=== PATIENT | female | born 1965 | race Caucasian/White ===

== ENCOUNTER → 2020-06-09 17:20 | Outpatient (CLI) | payer OTHER, SELFPAY ==
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
== END ==
PROVIDERS: PCP Family Medicine; Visit Provider Anesthesiology Pain Medicine
DX: M54.9 Dorsalgia, unspecified (principal)
CPT/HCPCS: 72072

== ENCOUNTER → 2022-08-02 | Outpatient (CLI) | payer OTHER, SELFPAY ==
--- NOTE | 2022-08-02 08:02 | ECHOCS_ITS ---
Reason For Study: DYSPNEA Procedure This was a 2D Doppler, Color Flow transthoracic echocardiogram. The study was technically difficult. Contrast injection was performed. Exam performed in department. Left Ventricle Normal LV size. Left ventricular systolic function is normal. The estimated ejection fraction is 60 %. Stage 1 diastolic dysfunction. No regional wall motion abnormalities noted. Right Ventricle Normal RV size. Normal systolic function. Atria Normal left atrium. Normal right atrium. Mitral Valve Normal mitral valve. Tricuspid Valve Normal tricuspid valve. Mild (1+) tricuspid valve insufficiency. Pulmonary artery systolic pressure is 28 mmHg. Aortic Valve The aortic valve is not well visualized. Pulmonic Valve The pulmonic valve is not well visualized. Great Vessels Normal aortic root. The pulmonary artery is normal size. Pericardium/Pleural No pericardial effusion. Medication 22 gauge I.V. with prn adaptor inserted into right arm. Diluted definity 2.5ml given slow IV push to enhance endocardial definition. MMode/2D Measurements & Calculations Ao root diam: 3.1 cm LAV(MOD-sp4): 35.4 ml LVAd ap4: 34.6 cm2 LVLd ap4: 8.5 cm EDV(MOD-sp4): 115.3 ml EDV(sp4-el): 119.6 ml LVAs ap4: 15.0 cm2 LVLs ap4: 6.2 cm ESV(MOD-sp4): 29.9 ml ESV(sp4-el): 30.8 ml EF(MOD-sp4): 74.1 % EF(sp4-el): 74.3 % SV(MOD-sp4): 85.5 ml SV(sp4-el): 88.9 ml LA A4 area: 17.0 cm2 LA dimension(2D): 5.1 cm RA A4 area: 13.6 cm2 Time Measurements MV dec time: 0.29 sec Doppler Measurements & Calculations MV E max corwin: 81.7 cm/sec Lat Peak E' Corwin: 8.0 cm/sec Med Peak E' Corwin: 7.3 cm/sec MV A max corwin: 110.8 cm/sec E/E' lat: 10.2 E/E' med: 11.1 MV E/A: 0.74 MV V2 max: 121.3 cm/sec MV dec slope: 280.7 cm/sec2 Ao V2 max: 147.3 cm/sec MV max P.9 mmHg Ao max P.7 mmHg MV V2 mean: 68.3 cm/sec Ao V2 mean: 107.1 cm/sec MV mean P.2 mmHg Ao mean P.2 mmHg MV V2 VTI: 33.3 cm Ao V2 VTI: 36.7 cm AV (velocity ratio): 0.85 LV V1 max: 128.8 cm/sec PA V2 max: 76.5 cm/sec TR max corwin: 249.1 cm/sec LV V1 max P.6 mmHg PA V2 mean: 50.1 cm/sec TR max P.8 mmHg LV V1 mean P.7 mmHg LV V1 mean: 91.2 cm/sec LV V1 VTI: 31.0 cm ECHO/Echo Complete W/ Contrast Interpretation Summary Normal LV size. Left ventricular systolic function is normal. The estimated ejection fraction is 60 %. Stage 1 diastolic dysfunction. Pulmonary artery systolic pressure is 28 mmHg. Contrast injection was performed. Ordering Physician: Lucas Glez Referring Physician: Ross Mc MD Performed By: [place] [facility]
== END | disposition home or self-care (01) ==
LOC: CVS 08:01
PROVIDERS: PCP Family Medicine; Visit Provider Internal Medicine Critical Care Medicine
DX: R06.02 Shortness of breath (principal); R06.00 Dyspnea, unspecified
CPT/HCPCS: 93306; Q9957; A4216; C8929

== ENCOUNTER → 2022-08-30 | Outpatient (CLI) | payer OTHER, SELFPAY ==
--- NOTE | 2022-08-31 05:57 | PFTCOMP ---
COMPLETE PULMONARY FUNCTION TEST INTERPRETATION Brief HPI: Patient is a 57-year-old female, currently under the care of myself, who presents to [facility] for complete pulmonary function tests secondary to diagnosis of dyspnea. Respiratory therapist reports good effort and reproducible results. Interpretation: Forced expiration spirometry shows no large airways obstructive ventilatory defect with an FEV1 of 91% predicted. There is no significant bronchodilator response by strict ATS criteria. Spirograms are of good quality and plateau normally. The respiratory flow volume loop shows a normal pattern. Lung volumes by body plethysmography show a total lung capacity at the lower limit of normal at 4.47 L, 86% predicted. All other lung volumes are within normal limits. Diffusion capacity by carbon monoxide is normal at 83% predicted. The airway resistance is normal. No previous pulmonary function tests were available for review. Impression: Grossly normal pulmonary function testing. Lung volumes are at the lower limit of normal and may need to be monitored.
== END | disposition home or self-care (01) ==
LOC: PSN 10:40
PROVIDERS: PCP Family Medicine; Visit Provider Internal Medicine Critical Care Medicine
DX: R06.02 Shortness of breath (principal)
CPT/HCPCS: 94060; 94726; 94729

== ENCOUNTER → 2022-09-13 | Outpatient (CLI) | payer OTHER, SELFPAY ==
[2022-09-13 12:54] VITALS: PULSE 102; PULSE 103; PULSE 115; PULSE 119; PULSE 123; PULSE 127; PULSE 128; O2SAT 95; O2SAT 96
--- NOTE | 2022-09-13 16:15 | PCM.PSN.6M ---
PSN 6 Minute Walk Test 6 Minute Walk Test 6 Minute Walk Test: 6 Minute Walk Test PSN:6-Minute Walk Test Start: 09/13/22 12:53 Freq: Status: Active Protocol: RESP.6MINW Document 09/13/22 12:54 [id number] (Rec: 09/13/22 12:57 [email or web address] [id number]) 6 Minute Walk Test Date Performed 09/13/22 Time Performed 12:35 Height 5 ft 5.5 in Weight: 127.913 kg Weight in Pounds 282.[address]: Lucas Glez Assistive device used: None Pre-test Oxygen Delivery Method Room Air Pulse Ox (%) 96 Pulse Rate (60-100 beats/min) 103 H Dyspnea Cade Scale (0-10) 0.5 Exertion Cade Scale (6-20) 6 1st minute Oxygen Delivery Method Room Air Pulse Ox (%) 95 Pulse Rate (60-100 beats/min) 115 H 2nd minute Oxygen Delivery Method Room Air Pulse Ox (%) 96 Pulse Rate (60-100 beats/min) 119 H 3rd minute Oxygen Delivery Method Room Air Pulse Ox (%) 96 Pulse Rate (60-100 beats/min) 123 H 4th minute Oxygen Delivery Method Room Air Pulse Ox (%) 96 Pulse Rate (60-100 beats/min) 127 H 5th minute Oxygen Delivery Method Room Air Pulse Ox (%) 95 Pulse Rate (60-100 beats/min) 127 H 6th minute Oxygen Delivery Method Room Air Pulse Ox (%) 95 Pulse Rate (60-100 beats/min) 128 H Dyspnea Cade Scale (0-10) 2 Exertion Cade Scale (6-20) 12 Post-test Oxygen Delivery Method Room Air Pulse Ox (%) 96 Pulse Rate (60-100 beats/min) 102 H Full Laps Walked 15 Partial Lap, Number of Tiles Walked 12 Total Distance Walked (ft) 897 Interpretation Interpretation: The patient was able to ambulate only 897 feet over the course of 6 minutes on room air with no assistive devices or breaks. The patient experienced no significant desaturation, but did have persistent tachycardia throughout testing with a peak heart rate of 128 bpm. These findings are consistent with a cardiovascular limitation exercise tolerance. Recommendations Recommendations: No supplemental oxygen is indicated at this time.
== END | disposition home or self-care (01) ==
LOC: PSN 12:34
PROVIDERS: PCP Family Medicine; Referring Provider Internal Medicine Critical Care Medicine; Visit Provider Internal Medicine Critical Care Medicine
DX: R06.02 Shortness of breath (principal)
CPT/HCPCS: 94618

== ENCOUNTER 2023-11-21 10:00 | Outpatient (RCR) | payer OTHER, SELFPAY ==
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
--- NOTE | 2023-11-21 10:23 | HP.PTDCSUM ---
Discharge Summary D/C summary: It has been my pleasure to treat PHILIP MCKINNEY referred by Dr. Jose Snow MD, with the diagnosis of DISPLACED FRACTURE OF UPPER HUMMERUS , NONDISPLACED FX OF NECK OF RADIUS for a total of 12 visit(s). Discharge Date: Please see the following information for a summary of their discharge status. Subjective Subjective: Doing better overall , Difficulty lifting heavy such as gallon milk but cleaning and yard work Pain Left Shoulder: Pain Intensity (Out of 10): 2 Overall Improvement % Improvement: 85 Objective Objective/Function: AROM: shoulder flexion 165 degrees ,abduction 160 in scaption , ER 90 degrees ,IR L1 Elbow 0-40- degrees , supination 80 degrees , pronation 90 degrees MMT: ( peak force) infraspinatus 16.4 , subscapularis 19.6 ,biceps 27 ,triceps `19.6 ,deltoid 9.3 ,wrist flexion /extension 16.1 ,supination/pronation 17.8 SOFTWARE [employer] ARCHITECT STRENGTHG: dynameter 55# Goals Goal 1:: Patient to be I with HEP for shoulder/elbow Goal Progress: Goal Met Goal 2:: Patient to improve AROM shoulder flexion/abduction 150 degrees , ER 85 degrees and IR L4 to put coat on Goal Progress: Goal Met Goal 3:: Patient to improve elbow ROM WFL for ADLS Goal Progress: Goal Met Goal 4:: Patient to improve peak force shoulder and elbow by 10 # strength to improve function Goal Progress: Goal Met Goal 5:: Patient to demonstrate 50% improvement with decrease pain and improve function Goal Progress: Goal Met Goal 6:: Patient to improve quick dash score by 5 points to improve function Plan Plan: D/C TO HEP D/C Information d/c sentence: If there are questions or concerns regarding this patient's physical therapy, please feel free to call me at [phone]. Thank you for the referral of this patient. Sincerely, Behzad Neil, PT, Cert MDT, OCS Balance/Gait/Functional tests Balance/Special Test Scores Quick DASH Score: 13.6350 Improvement % Improvement: 85
== END 2023-11-21 13:54 | disposition home or self-care (01) ==
LOC: PT 10:00
PROVIDERS: PCP Family Medicine; Referring Provider Orthopaedic Surgery Hand Surgery; Visit Provider Orthopaedic Surgery Hand Surgery
DX: S42.291D Other displaced fracture of upper end of right humerus, subsequent encounter for fracture with routine healing (principal); S52.134D Nondisplaced fracture of neck of right radius, subsequent encounter for closed fracture with routine healing
CPT/HCPCS: 97110; 97162; 97530

== ENCOUNTER 2024-09-24 15:35 | Outpatient (CLI) | payer OTHER, SELFPAY | END 2024-09-24 23:59 | disposition home or self-care (01) | LOC: LABSPEC 15:37 | PROVIDERS: PCP Family Medicine; Referring Provider Otolaryngology; Visit Provider Otolaryngology | DX: J32.8 Other chronic sinusitis (principal) | CPT/HCPCS: 87070; 87205 ==

== ENCOUNTER → 2024-11-19 | Outpatient (CLI) | payer OTHER, MEDICARE, SELFPAY ==
--- NOTE | 2024-11-19 14:37 | CT_ITS ---
PROCEDURE: SINUS/FACIAL BONE REASON FOR EXAM: CHRONIC SINUSITIS TECHNIQUE: CT of the paranasal sinuses without contrast. Coronal and Sagittal reconstruction series were provided. One or more dose reduction techniques were used (e.g., Automated exposure control, adjustment of the mA and/or kV according to patient size, use of iterative reconstruction technique). COMPARISON: None. FINDINGS: Frontal: No significant mucosal disease. Ethmoid: Mild chronic mucosal inflammatory thickening. Sphenoid: Mild chronic mucosal inflammatory thickening. Maxillary: Mild chronic mucosal inflammatory thickening. Prior ostiomeatal ostomies. Turbinates: Nasal Septum: Mild S shaped deviation. Mastoids/Middle Ears: Clear. Right occipital ventriculoperitoneal shunt tube is noted. CT/Sinus/Facial Bone IMPRESSION: Mild chronic mucosal inflammatory thickening of the ethmoid, sphenoid and maxil barrera sinuses. No CT evidence of acute sinusitis. Reading [facility]
== END | disposition home or self-care (01) ==
PROVIDERS: PCP Nurse Practitioner Family; Referring Provider Otolaryngology; Visit Provider Otolaryngology
DX: J32.8 Other chronic sinusitis (principal)
CPT/HCPCS: 70486

== ENCOUNTER 2025-05-17 10:00 | Outpatient (RCR) | payer OTHER, MEDICARE, SELFPAY ==
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
--- NOTE | 2025-05-17 10:19 | HP.PTDCSUM ---
Discharge Summary D/C summary: It has been my pleasure to treat PHILIP MCKINNEY referred by Dr. Shanae Reyes MD, with the diagnosis of LBP, neck pain for a total of 9 visit(s). Discharge Date: 05/17/25 Please see the following information for a summary of their discharge status. Subjective Subjective: Getting better. Got a zinger in R neck to hip and not sure why but got worse. Prior to that was significantly better. 3/10 pain in down R side of spine. Intemrittently, sharp at first. Improving. Actually getting some sleep now. 3 hrs at a time. Activity: Mostly normal, has been cleaning more. 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 legsd not hurting at all. Pain LBP: Pain Intensity (Out of 10): 5 BACK: Pain Intensity (Out of 10): 3 Overall Improvement % Improvement: 70 Objective Objective/Function: Good Lumbar ROM without pain. Limitd more in walking by dizzyness then pain but that is being tested for by her doctor. Walking without gait deficits today. Going well towrad goals but not realistic to continue in pool or gym usp with maximus [id number] situation. Goals Goal 1:: I appropriate pool or HEP for core strength adn general ex to limit future problems Goal Progress: home ex. Goal 2:: Pain in neck and LB 2/10 at worst and manageable 50% bettr. Goal Progress: Progressing Goal 3:: 40 minutes of housework without needing to take a b reak. Goal Progress: Goal Met Goal 4:: Plan to resume walking doges without increased pain Goal Progress: Progressing Plan Plan: d/c to HEP D/C Information Discharge Comments: Pineda lcomntinue via HEP and f/u with basali at appropriate time. d/c sentence: If there are questions or concerns regarding this patient's physical therapy, please feel free to call me at [phone]. Thank you for the referral of this patient. Sincerely, Krishna Carver, DPT, OCS, CSCS Balance/Gait/Functional tests Balance/Special Test Scores Oswestry Low Back Score: 30 Improvement % Improvement: 70
== END 2025-05-17 11:48 | disposition home or self-care (01) ==
LOC: PT 10:00
PROVIDERS: PCP Nurse Practitioner Family; Referring Provider Anesthesiology Pain Medicine; Visit Provider Anesthesiology Pain Medicine
DX: M54.2 Cervicalgia (principal)
CPT/HCPCS: 97113; 97162; 97164